=== PATIENT | female | born 1990 | race American Indian/Alaskan Native ===

== ENCOUNTER 2016-12-25 07:57 | Emergency (ER) | payer SELFPAY ==
[2016-12-25 08:33] LABS: Basophils % (Auto) 1.2 % (0.0-1.8); Eosinophils % (Auto) 4.8 % (0.0-4.3); Hematocrit 39.4 % (30.3-42.9); Hemoglobin 12.6 gm/dl (10.1-14.3); Mean Corpuscular HGB Conc 32 % (30-34); Mean Corpuscular Hemoglobin 27 pg (28-32); Mean Corpuscular Volume 86 fl (79-97); Platelet Count 168 K/mm3 (140-440); Red Blood Count 4.59 M/mm3 (3.65-5.03); Red Cell Distribution Width 15.1 % (13.2-15.2); White Blood Count 6.4 K/mm3 (4.5-11.0)
[2016-12-25 08:45] LABS: Anion Gap 16 mmol/L; BUN/Creatinine Ratio 13.33; Blood Urea Nitrogen 12 mg/dL (7-17); Calcium 8.5 mg/dL (8.4-10.2); Carbon Dioxide 26 mmol/L (22-30); Chloride 103.7 mmol/L (98-107); Glucose 106 mg/dL (65-100); Potassium 4.4 mmol/L (3.6-5.0); Sodium 141 mmol/L (137-145)
[2016-12-25 09:55] LABS: Bacteria,Urine 1+ /HPF (Negative); Bilirubin,Urine NEG (Negative); Blood,Urine NEG (Negative); Ketones,Urine NEG (Negative); Leukocyte Esterase,Urine NEG (Negative); Nitrite,Urine NEG (Negative); Protein,Urine <15 mg/dL mg/dL (Negative); Urobilinogen,Urine < 2.0 mg/dL (<2.0)
[2016-12-25 10:21] LABS: WBC,Urine < 1.0 /HPF (0.0-6.0)
[2016-12-25] MEDS ORDERED: ZOFRAN IV ONE (11:32)
[2016-12-25] MEDS ORDERED: NACL 0.9% 1000 ML 1,000 ML IV ONE (11:32)
[2016-12-25] MEDS ORDERED: TORADOL IV ONE (11:32)
--- NOTE | 2016-12-25 11:44 | Emergency Department Report ---
ED N/V/D HPI - General Chief complaint: Nausea/Vomiting/Diarrhea Stated complaint: FEVER/EMESIS/DIZZINESS/LIGHTHEADED Time Seen by Provider: 12/25/16 11:25 Source: patient Mode of arrival: Ambulatory Limitations: No Limitations - History of Present Illness Initial comments: Procedural female here with complaint of headache fever nausea vomiting. Patient states that starting bed yesterday. Patient has been around several children who have been sick recently. MD complaint: nausea, vomiting, abdominal pain -: Sudden Description of Vomiting: food contents Description of Diarrhea: water Location: diffuse Radiation: none Quality: cramping Improves with: none Worsens with: none Context: sick contacts Associated Symptoms: denies: myalgias, chest pain, cough - Related Data Previous Rx's Medication Instructions Recorded Last Taken Type Ibuprofen [Motrin] 600 mg PO Q8H PRN #30 tablet 12/25/16 Unknown Rx Ondansetron [Zofran Odt] 4 mg PO Q8HR PRN #14 tab.rapdis 12/25/16 Unknown Rx Allergies Allergy/AdvReac Type Severity Reaction Status Date / Time cephalexin monohydrate Allergy Swelling Verified 12/25/16 08:15 [From Keflex] codeine Allergy Swelling Verified 12/25/16 08:15 shellfish derived Allergy Swelling Verified 12/25/16 08:15 ED Review of Systems ROS: Stated complaint: FEVER/EMESIS/DIZZINESS/LIGHTHEADED Other details as noted in HPI Comment: All other systems reviewed and negative Constitutional: chills, fever Eyes: denies: eye pain, eye discharge, vision change ENT: denies: ear pain, throat pain Respiratory: denies: cough, shortness of breath, wheezing Cardiovascular: denies: chest pain, palpitations Endocrine: no symptoms reported Gastrointestinal: abdominal pain, nausea, vomiting. denies: diarrhea Genitourinary: denies: urgency, dysuria, discharge Musculoskeletal: denies: back pain, joint swelling, arthralgia Skin: denies: rash, lesions Neurological: denies: headache, weakness, paresthesias Psychiatric: denies: anxiety, depression Hematological/Lymphatic: denies: easy bleeding, easy bruising ED Past Medical Hx - Past Medical History Previous Medical History?: Yes Hx Diabetes: Yes (diet controlled) Hx Seizures: Yes Hx Psychiatric Treatment: Yes (depression) Additional medical history: ectopic 2012, hx of heart palpitations and syncope, POSC - Surgical History Past Surgical History?: Yes Additional Surgical History: abd hernia surgery, ectopic 2012, - Social History Smoking Status: Current Some Day Smoker Substance Use Type: Alcohol, Non Opiate Pain, Prescribed - Medications Home Medications: Home Medications Medication Instructions Recorded Confirmed Last Taken Type Ibuprofen [Motrin] 600 mg PO Q8H PRN #30 tablet 12/25/16 Unknown Rx Ondansetron [Zofran Odt] 4 mg PO Q8HR PRN #14 tab.rapdis 12/25/16 Unknown Rx ED Physical Exam - General Limitations: No Limitations General appearance: alert, in no apparent distress - Head Head exam: Present: atraumatic, normocephalic - Eye Eye exam: Present: normal appearance. Absent: scleral icterus, conjunctival injection - ENT ENT exam: Present: mucous membranes moist - Neck Neck exam: Present: normal inspection - Respiratory Respiratory exam: Present: normal lung sounds bilaterally. Absent: respiratory distress - Cardiovascular Cardiovascular Exam: Present: regular rate, normal rhythm. Absent: systolic murmur, diastolic murmur, rubs, gallop - GI/Abdominal GI/Abdominal exam: Present: soft, normal bowel sounds. Absent: distended, tenderness, guarding, rebound, rigid - Extremities Exam Extremities exam: Present: normal inspection - Back Exam Back exam: Present: normal inspection - Neurological Exam Neurological exam: Present: alert, oriented X3 - Psychiatric Psychiatric exam: Present: normal affect, normal mood - Skin Skin exam: Present: warm, dry, intact, normal color. Absent: rash ED Course Vital Signs 12/25/16 12/25/16 12/25/16 08:15 11:35 13:41 Temperature 98.7 F 98.5 F Pulse Rate 53 L 50 L Respiratory 18 20 18 Rate Blood Pressure 100/62 Blood Pressure 103/68 [Right] O2 Sat by Pulse 98 99 Oximetry ED Medical Decision Making - Lab Data Result diagrams: 12/25/16 08:23 12/25/16 08:23 Laboratory Results - last 24 hr 12/25/16 12/25/16 12/25/16 08:23 08:23 08:30 WBC 6.4 RBC 4.59 Hgb 12.6 Hct 39.4 MCV 86 MCH 27 L MCHC 32 RDW 15.1 Plt Count 168 Lymph % (Auto) 25.8 [place] % (Auto) 5.5 Eos % (Auto) 4.8 H Baso % (Auto) 1.2 Lymph # 1.7 [place] # 0.4 Eos # 0.3 Baso # 0.1 Seg Neutrophils % 62.7 Seg Neutrophils # 4.0 Sodium 141 Potassium 4.4 Chloride 103.7 Carbon Dioxide 26 Anion Gap 16 BUN 12 Creatinine 0.9 Estimated GFR > 60 BUN/Creatinine Ratio 13.33 Glucose 106 H Calcium 8.5 Urine Color Yellow Urine Turbidity Turbid Urine pH 8.0 H Ur Specific [place] 1.019 Urine Protein <15 mg/dl Urine Glucose (UA) Neg Urine Ketones Neg Urine Blood Neg Urine Nitrite Neg Urine Bilirubin Neg Urine Urobilinogen < 2.0 Ur Leukocyte Esterase Neg Urine WBC (Auto) < 1.0 Urine RBC (Auto) 4.0 U Epithel Cells (Auto) 2.0 Urine Bacteria (Auto) 1+ Amorphous Crystals 1+ Urine HCG, Qual Negative - Medical Decision Making 26-year-old female with likely gastroenteritis. Plan to discharge home with oral Zofran. Appears well planned discharge. Critical care attestation.: If time is entered above; I have spent that time in minutes in the direct care of this critically ill patient, excluding procedure time. ED Disposition Clinical Impression: Gastroenteritis Disposition: DC-01 TO HOME OR SELFCARE Is pt being admited?: No Condition: Stable Instructions: Gastroenteritis (ED) Prescriptions: Ibuprofen [Motrin] 600 mg PO Q8H PRN #30 tablet PRN Reason: Pain Ondansetron [Zofran Odt] 4 mg PO Q8HR PRN #14 tab.rapdis PRN Reason: Nausea And Vomiting Referrals: PRIMARY CARE, [Primary Care Provider] - 3-5 Days
[2016-12-25 13:41] VITALS: BP 103/68
== END 2016-12-25 14:47 | disposition home or self-care (01) ==
LOC: ED 07:57
DX: K52.9 Noninfective gastroenteritis and colitis, unspecified (principal); E11.9 Type 2 diabetes mellitus without complications; Z72.0 Tobacco use; Z88.5 Allergy status to narcotic agent; Z91.013 Allergy to seafood
CPT/HCPCS: 36415; 80048; 81001; 81025; 82962; 85025; 96361; 96374; 96375; 99283; J1885; J2405; J7030